=== PATIENT | male | born 1965 | race Caucasian/White ===

== ENCOUNTER 2024-05-03 16:18 | Emergency (ER) | payer OTHER, SELFPAY ==
[2024-05-03 17:08] VITALS: BP 179/106; PULSE 71; RESP 18; TEMP 36.6; O2SAT 100
--- NOTE | 2024-05-03 18:15 | ED.RECABL ---
HPI - Recheck/Abnormal Lab/Rx General Chief Complaint: Recheck/Abnormal Lab/Rx Stated Complaint: high blood pressure, 210/110 Time Seen by Provider: 05/03/24 18:15 Source: patient Mode of arrival: ambulatory Limitations: no limitations History of Present Illness HPI narrative: Patient is a 58 y/o male who presents to the ED with c/o rash and elevated BP. Patient reports he has had a rash to his back, neck, trunk, arms, for the past 3 weeks. States the rash is very itchy. Worse with heat. Denies pain. Denies fevers. Denies other household members having the rash. He went to urgent care today and his blood pressure was noted to be elevated to 210/110 at the urgent care. Was sent to the ED for further evaluation. Patient denies previous history of hypertension, but states the urgent care visits he has had in the past couple months, his blood pressures have been elevated into the 150s to 160 systolic. Patient does not routinely check his blood pressures at home. Has not seen a primary care doctor in the last 3 years. Denies SALTER, dizziness, lightheadedness, CP, SOB, blurry vision, focal numbness or weakness. Related Data Allergies Allergy/AdvReac Type Severity Reaction Status Date / Time No Known Allergies Allergy Unverified 04/04/15 18:20 Review of Systems Review of Systems: All systems reviewed & are unremarkable except as noted in HPI. All systems reviewed & are unremarkable except as noted in HPI and below Exam Narrative: GENERAL: Well appearing, well-nourished, non-toxic, in no acute distress. HEAD: Normocephalic, atraumatic. RESPIRATORY: Airway patent, respirations nonlabored. Clear to auscultation bilaterally, no rales, rhonchi, wheezing. CARDIOVASCULAR: Regular rate and rhythm MUSCULOSKELETAL: Moves all extremities. No gross deformities. SKIN: Warm, dry, normal color. Diffuse papular rash to arms, trunk, bilateral lateral neck, a diffusely across his back in oblique lines. No lesions on hands/palms. NEURO: A&O X3. Speech clear. Cranial nerves II-XII grossly intact. Steady gait. No ataxic movements. PSYCHIATRIC: Appropriate mood and affect. Normal interaction. Course Vital Signs Vital signs: Vital Signs Temperature 97.9 F 05/03/24 17:08 Pulse Rate 71 05/03/24 17:08 Respiratory Rate 18 05/03/24 17:08 Blood Pressure 179/106 H 05/03/24 17:08 Pulse Oximetry 100 05/03/24 17:08 Oxygen Delivery Room Air 05/03/24 17:08 Temperature 97.9 F 05/03/24 17:08 Pulse Rate 66 05/03/24 19:02 Respiratory Rate 14 05/03/24 19:02 Blood Pressure 189/110 H 05/03/24 19:02 Pulse Oximetry 100 05/03/24 19:02 Oxygen Delivery Room Air 05/03/24 17:08 MDM - Recheck/Abnormal Lab/Rx MDM Narrative Medical decision making narrative: Rash is consistent with pityriasis rosea. Discussed with the patient. Discussed that this is self-limiting. Will prescribe hydrocortisone cream, discussed further antihistamine therapy for itching. BP upon arrival here 179/106. Patient is asymptomatic. He does note that his blood pressure has been elevated and his last few urgent care visits over the last few months. Consistent with chronic hypertension. He is denying any red flag symptoms. He is neurologically intact. Will be started on amlodipine at this time. Given 1st dose in the ED. Will prescribe course of this for home to be taken daily. Emphasized the extreme importance of following up with primary care doctor for further management of hypertension. Advised patient to obtain home BP cuff and monitor blood pressures daily and keep recording of this. Discussed very strict return precautions. He voiced understanding. He seems like a very reliable patient and is appropriately worried about his blood pressure. Discharged in stable condition. Medical Records Attestation: I reviewed the patient's medical records. Discharge Plan Discharge Clinical Impression: Pityriasis rosea Hypertension Qualifiers: Hypertension type: unspecified Qualified Code(s): I10 - Essential (primary) hypertension Patient Disposition: Home, Self-Care Condition: Stable Instructions: Antibiotic Form, Chronic Hypertension (ED), Pityriasis rosea (ED) Additional Instructions: Take amlodipine daily for hypertension. Monitor blood pressure at least once daily and keep a recording of pressures. Follow up closely with primary care doctor for further evaluation and management. Return to the ED if you experience severe dizziness, lightheadedness, chest pain, difficulty breathing, vision changes, passing out, numbness or weakness of arm or leg, persistent headaches, or any other symptoms of concern. Utilize hydrocortisone ointment as prescribed over rash for itching. You may also take Benadryl, Zyrtec, Claritin as needed for her itching. Your rash should resolve on its own within the next few weeks. Patient Language: Greenlandic Prescriptions: New amlodipine 5 mg tablet 5 mg PO DAILY Qty: 60 0RF hydrocortisone valerate 0.2 % ointment 1 applic topical BID PRN (Reason: itching) Qty: 60 0RF Follow-up/Referrals: Agustina Hall MD [Physician] - (PRIMARY CARE) Ankita Lyman APRN [Advanced Practice Nurse] - (PRIMARY CARE) Luz Alba DO [Physician] - (PRIMARY CARE) Cedric Welch MD [Physician] - (PRIMARY CARE) Dinesh Thornton MD [Physician] - (PRIMARY CARE) Paul Lindsey MD [Physician] - (PRIMARY CARE) Chad Larry MD [Physician] - (PRIMARY CARE) Osvaldo Souza MD [Primary Care Provider] - Geovanna Vega DO [Physician] - (PRIMARY CARE) Time of Disposition: 18:51
[2024-05-03] MEDS: amLODIPine BESYLATE 5 MG TABLET PO (18:55)
[2024-05-03 19:02] VITALS: BP 189/110; PULSE 66; RESP 14; O2SAT 100
== END 2024-05-03 19:06 | disposition home or self-care (01) ==
PROVIDERS: Emergency Provider Physician Assistant; PCP Family Medicine
DX: I10 Essential (primary) hypertension (principal); L42 Pityriasis rosea
CPT/HCPCS: 99283; A9270